=== PATIENT | female | born 1990 | race Hispanic/Latino ===

== ENCOUNTER 2018-03-22 13:30 | Emergency (ER) | payer SELFPAY ==
[2018-03-22 14:03] LABS: APPEARANCE,URINE Clear (CLEAR); BILIRUBIN,URINE Negative (NEGATIVE); COLOR,URINE Yellow (YELLOW); GLUCOSE, URINE (UA) Negative (NEGATIVE); KETONES,URINE Negative (NEGATIVE); LEUKOCYTE ESTERASE ,URINE Trace (NEGATIVE); NITRATE,URINE Negative (NEGATIVE); OCCULT BLOOD,URINE Small (NEGATIVE); PH,URINE 7.5 (5.0-8.0); PROTEIN,URINE Negative (NEGATIVE)
[2018-03-22 14:06] LABS: HCG,QUAL RESULT NEGATIVE (NEGATIVE)
[2018-03-22] MEDS ORDERED: ONDANSETRON ODT 4 MG TAB ONE (14:08)
[2018-03-22] MEDS ORDERED: ACETAMINOPHEN EXTRA STRENGTH 500 MG TABLET ONE (14:08)
[2018-03-22 14:19] LABS: BACTERIA,URINE Rare /HPF (None Seen); RBC,URINE 0-1 /HPF (0-1); SQUAMOUS EPITHELIAL CELL,UR Rare /HPF (0-2); WBC,URINE 0-1 /HPF (0-1)
== END 2018-03-22 16:30 | disposition home or self-care (01) ==
LOC: EDH 13:30
DX: B34.9 Viral infection, unspecified (principal)
CPT/HCPCS: 81001; 81025; 87804

== ENCOUNTER 2020-08-27 20:37 | Emergency (ER) | payer SELFPAY ==
[2020-08-27] MEDS ORDERED: LIDOCAINE HCL 1% 20 ML VIAL ONE (22:12)
[2020-08-27] MEDS ORDERED: KETOROLAC 30MG VIAL (30MG/ML) ONE (22:12)
[2020-08-27] MEDS ORDERED: TETANUS/DIPHTHERIA TOXOID [ADULT] 0.5 ML VIAL IM ONE (22:13)
== END 2020-08-27 23:19 | disposition home or self-care (01) ==
LOC: EDH 20:37
DX: S61.012A Laceration without foreign body of left thumb without damage to nail, initial encounter (principal); X58.XXXA Exposure to other specified factors, initial encounter; Y93.89 Activity, other specified; Y92.098 Other place in other non-institutional residence as the place of occurrence of the external cause; Y99.8 Other external cause status
CPT/HCPCS: 12042; 90471; 90714; 96372; 99284; J1885